=== PATIENT | female | born 1990 | race Hispanic/Latino ===

== ENCOUNTER 2017-11-25 19:08 | Emergency (ER) | payer BC ==
[~2017-11-25] VITALS: Ht 170.2 cm; Wt 75.3 kg
[2017-11-25] MEDS ORDERED: ASPIRIN 325 MG TAB PO ONE (20:15)
[2017-11-25 20:41] VITALS: BP 122/82
== END 2017-11-25 20:51 | disposition home or self-care (01) ==
LOC: FSED 19:08
DX: R20.2 Paresthesia of skin (principal)
CPT/HCPCS: 70450; 81003; 81025; 99283